=== PATIENT | male | born 1980 | race Caucasian/White ===

== ENCOUNTER → 2017-01-08 | Outpatient (REF) | payer OTHER | LOC: M LAB REF 16:27 | PROVIDERS: ATTEND Physician Assistant | DX: J02.9 Acute pharyngitis, unspecified (principal) ==

== ENCOUNTER → 2019-07-15 | Outpatient (CLI) | payer BC ==
--- NOTE | 2019-07-15 09:36 | REP ---
Foot four views: The third digit middle phalange appears slightly subluxed laterally in relation to the proximal phalangeal head. This may represent ligamentous injury. Mineralization and joint spaces otherwise are normal. There is no fracture or dislocation. There are no calcifications or foreign bodies. Impression: Slight lateral subluxation of the third digit middle phalange base on the proximal phalange head. Electronically Signed by Matthew Nielson MD 07/15/2019 09:28 A
== END ==
LOC: M ADAMS 09:06
PROVIDERS: ATTEND Physician Assistant Medical
DX: S90.122A Contusion of left lesser toe(s) without damage to nail, initial encounter (principal); X58.XXXA Exposure to other specified factors, initial encounter; Y92.89 Other specified places as the place of occurrence of the external cause

== ENCOUNTER → 2019-10-14 | Outpatient (REF) | payer BC | LOC: M LAB REF 09:31 | PROVIDERS: ATTEND Physician Assistant | DX: N39.0 Urinary tract infection, site not specified (principal) ==

== ENCOUNTER → 2020-01-09 | Outpatient (REF) | payer BC ==
[2020-01-09 15:44] LABS: SEMEN APPEARANCE OPAQUE (OPAQUE); SEMEN VISCOSITY LIQUID (LIQUID); SEMEN VOLUME 1.4 ml (2.0-5.0); WBC CONCENTRATION >1 M/ml (<=1 M/ml)
== END ==
LOC: M SMT 12:13
PROVIDERS: ATTEND Nurse Practitioner Family
DX: Z30.09 Encounter for other general counseling and advice on contraception (principal)

== ENCOUNTER → 2020-11-06 | Outpatient (CLI) | payer SELFPAY | LOC: M LABSMTC 14:25 | PROVIDERS: ATTEND Pediatrics | DX: Z20.828 Contact with and (suspected) exposure to other viral communicable diseases (principal) ==

== ENCOUNTER → 2022-10-23 | Outpatient (CLI) | payer BC | LOC: M PLAIMG 11:13 | PROVIDERS: ATTEND Physician Assistant Medical | DX: M75.102 Unspecified rotator cuff tear or rupture of left shoulder, not specified as traumatic (principal) ==

== ENCOUNTER 2023-09-30 11:01 | Day surgery (SDC) | payer BC, OTHER ==
[~2023-09-30] VITALS: Ht 177.8 cm; Wt 98.4 kg
[~2023-09-30 11:01] MED LIST: ALBU8.5H INH; DIPH-435 PO; NS 1,000 ML IV ONE
[2023-09-30] MEDS ORDERED: LIDOCAINE 2% 100MG/5ML SDV (FOR ANES.) As Ordered ONE (13:09)
[2023-09-30] MEDS ORDERED: propofoL 200 MG/20 ML VIAL As Ordered ONE ×2 (13:09→13:12)
[2023-09-30 13:18] VITALS: TEMP 98.3
[2023-09-30 13:38] VITALS: BP 106/51; O2SAT 100
== END 2023-09-30 13:40 | disposition home or self-care (01) ==
LOC: M OPP 11:01
PROVIDERS: ATTEND Internal Medicine Gastroenterology
DX: K64.0 First degree hemorrhoids (principal); K64.4 Residual hemorrhoidal skin tags; K62.5 Hemorrhage of anus and rectum; Z79.51 Long term (current) use of inhaled steroids

== ENCOUNTER → 2024-10-10 | Outpatient (CLI) | payer OTHER ==
[~2024-10-10] MED LIST changes: -NS 1,000 ML IV ONE
== END ==
LOC: M SLEEP 20:00
PROVIDERS: ATTEND Internal Medicine
DX: R06.83 Snoring (principal)